=== PATIENT | female | born 1965 | race Hispanic/Latino ===

== ENCOUNTER 2016-03-14 06:10 | Day surgery (SDC) | payer MEDICARE ==
[~2016-03-14 06:10] MED LIST: ANCEF/STERILE WATER 2 GM/20 ML 20 ML IV NR; NACL 0.9% 1000 ML 1,000 ML IV SCH; NACL BACTERIOSTATIC INFILTRATI ONE
[2016-03-14] MEDS ORDERED: DIPRIVAN 10 MG/ML IV ONE (06:35)
[2016-03-14] MEDS ORDERED: DILAUDID ONE (06:36)
[2016-03-14] MEDS ORDERED: ZOFRAN ONE (06:41)
[2016-03-14] MEDS ORDERED: DECADRON ONE (06:41)
[2016-03-14] MEDS ORDERED: XYLOCAINE CARDIAC IV ONE (06:58)
--- NOTE | 2016-03-14 07:08 | Anesthesia Day of Surgery ---
Anesthesia Day of Surgery - Day of Surgery Patient Examined: Yes Patient H&P Reviewed: Yes Patient is NPO: Yes
--- NOTE | 2016-03-14 07:12 | Anesthesia Consultation ---
Anesthesia Consult and Med Hx - Airway Anesthetic Teeth Evaluation: Good ROM Head & Neck: Adequate Mental/Hyoid Distance: Adequate Mallampati Class: Class II Intubation Access Assessment: Probably Good - Pulmonary Exam CTA: Yes - Cardiac Exam Cardiac Exam: RRR - Pre-Operative Health Status ASA Pre-Surgery Classification: ASA4 Proposed Anesthetic Plan: General - Pulmonary Hx Smoking: No (past smoker quit 2011) - Cardiovascular System Hx Hypertension: Yes (NO MEDS) Hx Cardia Arrhythmia: Yes (Hx of Afib) Hx Peripheral Vascular Disease: Yes (peripheral neuropathy) - Gastrointestinal Hx Gastroesophageal Reflux Disease: No - Endocrine Hx End Stage Renal Disease: Yes (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 Hx DVT , ESRD, HTN, DM, AFIB. No prior anesthesia problems
[2016-03-14] MEDS ORDERED: IMODIUM PO NR (07:19)
[2016-03-14 07:21] LABS: Basophils % (Auto) 2.5 % (0.0-1.8); Eosinophils % (Auto) 4.5 % (0.0-4.3); Hematocrit 32.2 % (30.3-42.9); Mean Corpuscular HGB Conc 34 % (30-34); Mean Corpuscular Hemoglobin 33 pg (28-32); Mean Corpuscular Volume 97 fl (79-97); Platelet Count 205 K/mm3 (140-440); Red Blood Count 3.31 M/mm3 (3.65-5.03); Red Cell Distribution Width 13.4 % (13.2-15.2); White Blood Count 9.4 K/mm3 (4.5-11.0)
[2016-03-14 07:30] LABS: INR 1.76 (0.87-1.13)
[2016-03-14 07:45] LABS: BUN/Creatinine Ratio 6.2; Chloride 97.4 mmol/L (98-107); Potassium 5.3 mmol/L (3.6-5.0)
[2016-03-14] MEDS ORDERED: VERSED IV NR (08:00)
[2016-03-14] MEDS ORDERED: PEPCID PO NR (08:00)
[2016-03-14] MEDS ORDERED: HEPARIN 10,000 UNITS/10 ML 1,000 UNIT in NACL 0.9% 250ML 250 ML IR ONE (08:46)
[2016-03-14] MEDS ORDERED: NEO SYNEPHRINE/NS Syringe(OR USE) IV ONE (08:49)
[2016-03-14] MEDS ORDERED: HEPARIN 10,000 UNITS/10 ML IV ONE (08:51)
[2016-03-14] MEDS ORDERED: MARCAINE 0.5% INFILTRATI ONE ×2 (08:51)
[2016-03-14] MEDS ORDERED: NEO SYNEPHRINE ONE (08:55)
[2016-03-14] MEDS ORDERED: NACL 0.9% 100 ML ONE (08:55)
[2016-03-14] MEDS ORDERED: NACL P/F VIAL (10 ML) 10 ML ONE (09:10)
[2016-03-14] MEDS ORDERED: ePHEDrine SULFATE ONE (09:10)
--- NOTE | 2016-03-14 09:29 | Operative Report ---
Operative Report Operative Report: Date of procedure: 03/14/2016 Pre-operative diagnosis: End-Stage Renal Disease Post-operative diagnosis: End-Stage Renal Disease Procedure(s): Creation of Left Alberto Fistula Surgeon: Barney Johnson MD Crosstie Inspector: None Anesthesia: General Endotracheal Anesthesia EBL: Minimal Counts: Correct Complications: None Condition: Stable Findings: Successful creation of left arm AV fistula Specimen: None Indication: The patient is a 50-year-old female with history of end-stage renal disease in need of long-term access. Her vein sizing demonstrated was an adequate candidate for creation of an AV fistula. She was given the risks, benefits, and alternative procedures and consented to procedure. Description of Procedure: The patient was brought to the operating room and laid in supine position after general endotracheal anesthesia was achieved his left arm was prepped and draped in normal sterile fashion. Longitudinal incision was then created on the distal wrist centered over the cephalic vein and a second incision was created in longitudinal fashion over the radial artery. The radial artery was dissected out circumferentially and controlled with vessel loops. The cephalic vein was then dissected out circumferentially, ligating side branches and dividing them, and then a tunnel was created to transpose it over to the radial artery. A 3 Dexter was then advanced through the cephalic vein proximally to ensure patency. The vein was then flushed with heparinized saline and control of the bulldog clamp. The radial artery vessel loops were put on tension occluding flow, and then an 11 blade and Soto scissors used to create an arteriotomy. An end-to-side anastomosis created between the cephalic vein and the radial artery using a single 6-0 Prolene in running fashion. Prior to completing the anastomosis I flushed the artery both retrograde and antegrade and advanced a 3 Dexter into the proximal portion of the artery to break the spasm. I then completed the anastomosis and removed all clamps allowing flow into the fistula which had an excellent thrill. The necessity wound using half percent Marcaine plain. Then closed the wounds in 2 layers using a 3-0 Vicryl running fashion the deep dermal layer, 4-0 Monocryl in a running fashion the subcuticular layer, and Surgicel as a dressing. The patient tolerated the procedure well, all sponge needle asthma counts correct, the patient was taken to recovery in stable condition.
--- NOTE | 2016-03-14 09:34 | Short Stay Summary ---
Short Stay Documentation Date of service: 03/14/16 Narrative H&P: See H&P - History H&P: obtained from office - Allergies and Medications Current Medications: Allergies No Known Allergies Allergy (Unverified 09/24/13 10:23) Home Medications Medication Instructions Recorded Confirmed Last Taken Type HYDROcodone/APAP 10-325 [[place] 1 each PO Q8HR PRN 09/24/13 03/09/16 03/14/16 06: 20 History 10/325] Methadone [Dolophine] 15 mg PO TID 09/24/13 03/09/16 03/14/16 06:20 History Zolpidem [Ambien] 10 mg PO QHS PRN 09/24/13 03/09/16 03/13/16 History Amitriptyline [Elavil] 25 mg PO QHS 03/03/16 03/09/16 03/13/16 History Cinacalcet [Sensipar] 30 mg PO QDAY 03/03/16 03/09/16 03/13/16 History Sevelamer Carbonate [Renvela] 3 tab PO TIDWM 03/03/16 03/09/16 03/13/16 History Warfarin [Coumadin] 5 mg PO 4XW 03/03/16 03/14/16 03/12/16 History Warfarin [Coumadin] 7.5 mg PO 3XW 03/03/16 03/09/16 03/13/16 History Active Medications Famotidine (Pepcid) 20 mg PO PREOP NR Stop: 03/14/16 23:59 Last Admin: 03/14/16 07:09 Dose: 20 mg Cefazolin Sodium (Ancef/Sterile Water 2 Gm/20 Ml) 20 mls @ 80 mls/hr IV PREOP NR PRN Reason: Protocol Stop: 03/14/16 23:59 Sodium Chloride (Nacl 0.9% 1000 Ml) 1,000 mls @ 42 mls/hr IV DIRECT AKASH Last Admin: 03/14/16 06:50 Dose: 42 mls/hr Loperamide HCl (Imodium) 4 mg PO ONCE NR Stop: 03/14/16 12:00 Last Admin: 03/14/16 07:28 Dose: 4 mg Midazolam HCl (Versed) 1 mg IV PREOP NR Stop: 03/14/16 23:59 Last Admin: 03/14/16 07:10 Dose: 1 mg - Brief post op/procedure progress note Date of procedure: 03/14/16 Pre-op diagnosis: end-stage renal disease Post-op diagnosis: same Procedure: Creation of left Alberto AV fistula Anesthesia: JACKYA Surgeon: GILBERTO HAMMOND Estimated blood loss: minimal Pathology: none - Disposition Condition at discharge: Good Disposition: DISCHARGED TO HOME OR SELFCARE Short Stay Discharge Plan Activity: other (no heavy lifting with left arm) Wound: open to air, keep clean and dry, other (okay to wash the wound with soap and water but do not soak in water) Follow up with: GILBERTO HAMMOND MD [Staff Physician] - 14 Days Prescriptions: HYDROcodone/APAP 7.5-325 [[place] 7.5/325] 1 each PO Q6HR PRN #50 tablet PRN Reason: Pain
--- NOTE | 2016-03-14 10:21 | Post Anesthesia Evaluation ---
- Post Anesthesia Evaluation Patient Participated: Yes Airway Patent: Yes Stable Respiratory Function: Yes Nausea/Vomiting: No Temp > 96.8F: Yes Pain Manageable: Yes Adequeate Hydration: Yes Anesthesia Complications: No Block Receding Appropriately: Not Applicable Patient on Ventilator: No
[2016-03-14 11:00] VITALS: BP 131/67
[2016-03-14] MEDS ORDERED: NACL 0.9% 250ML ONE (14:00)
== END 2016-03-14 11:22 | disposition home or self-care (01) ==
LOC: OR 06:10
PROVIDERS: ATTEND Surgery Vascular Surgery
DX: I12.0 Hypertensive chronic kidney disease with stage 5 chronic kidney disease or end stage renal disease (principal); E11.22 Type 2 diabetes mellitus with diabetic chronic kidney disease; N18.6 End stage renal disease; E78.5 Hyperlipidemia, unspecified; E11.42 Type 2 diabetes mellitus with diabetic polyneuropathy; Z99.2 Dependence on renal dialysis; Z90.49 Acquired absence of other specified parts of digestive tract; Z98.890 Other specified postprocedural states; Z87.891 Personal history of nicotine dependence; Z89.512 Acquired absence of left leg below knee; Z89.421 Acquired absence of other right toe(s); Z80.9 Family history of malignant neoplasm, unspecified; Z83.3 Family history of diabetes mellitus
CPT/HCPCS: 36415; 36818; 80048; 82962; 84703; 85025; 85610; J0690; J1100; J1170; J1644; J2001; J2250; J2370; J2405; J2704; J7030; J7050; C1757